=== PATIENT | male | born 1990 | race Caucasian/White ===

== ENCOUNTER 2021-06-05 21:52 | Emergency (ER) | payer OTHER ==
[~2021-06-05] VITALS: Ht 180.3 cm; Wt 90.7 kg
[2021-06-05] MEDS ORDERED: LIDOCAINE HCL 1% 20 ML VIAL IJ ONE (22:00)
--- NOTE | 2021-06-05 22:13 | NUR ---
PT IS IN ROOM #2B. DR JOVEL EVALUATED THE PT.
[2021-06-05] MEDS ORDERED: TDAP DIPH,PERTUSS,TET VAC/PF 0.5 ML DISP.SYRIN IM ONE ×2 (22:15→22:36)
--- NOTE | 2021-06-05 22:50 | NUR ---
PT WAS D/C'd TO HOME. D/C INSTRUCTIONS GIVEN TO THE PT BY DR JOVEL. NO BLEEDING. DRESSING INTACT
[2021-06-05 22:52] VITALS: BP 136/77
== END 2021-06-05 22:53 | disposition home or self-care (01) ==
LOC: ER 21:56
DX: S61.411A Laceration without foreign body of right hand, initial encounter (principal); W20.8XXA Other cause of strike by thrown, projected or falling object, initial encounter; Y93.G1 Activity, food preparation and clean up; Y92.511 Restaurant or cafe as the place of occurrence of the external cause; Y99.0 Civilian activity done for income or pay
CPT/HCPCS: 12002; 90471; 90715; 99283; J3490; A4663